=== PATIENT | female | born 2000 | race Caucasian/White ===

== ENCOUNTER 2020-05-15 22:54 | Emergency (ER) | payer OTHER ==
[2020-05-15] MEDS ORDERED: Pantoprazole 80 MG in Sodium Chloride 0.9% 20 ML IVPUSH ONE (23:18)
[2020-05-15] MEDS ORDERED: Alum Hydrox/Mag Hydrox/Simeth 15 ML, Metoclopramide 5 MG, Lidocaine 2% 5 ML PO ONE ×3 (23:18)
--- NOTE | 2020-05-15 23:22 | EDM.PDOC ---
ED [facility] GENERAL MEDICAL PROBLEM - General Chief Complaint: Chest Pain Stated Complaint: chest pains Time Seen by Provider: 05/15/20 22:58 - History of Present Illness INITIAL COMMENTS - FREE TEXT/NARRATIVE: HISTORY AND PHYSICAL: History of present illness: This 20-year-old female is currently 15 weeks , 2, para 0, EAB 1, presents emergency department complaining of chest pain with difficulty swallowing. It is gradually worsening over the last several days. She did have a few weeks of severe retching but has not been retching over the last 1 to 2 weeks given that she has had an escalation of her antinausea medication regiment. She was told to take Pepcid by her SHIPPING RECEIVING CLERK however she takes the Pepcid and then vomits. She has vomited 1-2 times since then and this causes severe pain. There is no family history or personal history of PE or DVT. She has not had a cough or fever. There is no phlegm production. There is no hemoptysis or hematemesis. There is no hematochezia. She denies any urinary sy mptoms. There is no abdominal cramping. No other associated signs or symptoms. No other modifying, aggravating or alleviating factors. Review of systems: A 10-point review of systems, other than pertinent positives and negatives as stated per HPI, is otherwise negative. Past medical history: As per history of present illness and as reviewed below otherwise noncontributory. Surgical history: As per history of present illness and as reviewed below otherwise noncontributory. Social history: No reported history of drug or alcohol abuse. Family history: As per history of present illness and as reviewed below otherwise noncontributory. Physical exam: VITAL SIGNS: Reviewed. GENERAL: Mild to moderate distress continues to rub her sternum in the midsternal area. HEAD: No signs of head trauma. EYES: Pupils are equal. Extraocular motions intact. EARS: Hearing grossly intact. MOUTH: Oropharynx is normal. NECK: No adenopathy, no JVD. CHEST: Chest with clear breath sounds bilaterally. No wheezes, rales, or rhonchi. CARDIAC: Tachycardic rate. Regular rhythm. I do not appreciate a murmur. VASCULAR: Peripheral pulses normal and equal in all extremities. ABDOMEN: Soft, without detectable tenderness. No sign of distention. No rebound or guarding, and no masses palpated. MUSCULOSKELETAL: Good range of motion of all major joints. Extremities without clubbing, cyanosis or edema. NEUROLOGIC EXAM: Alert and oriented x 3. No focal sensory or motor deficits. Speech normal. Follows commands. PSYCHIATRIC: Mood normal. SKIN: No rash or lesions. Initial Differential Diagnosis & Plan: Differential diagnosis includes acute myocardial infarction, pulmonary embolism, aortic dissection, pneumothorax, and esophageal rupture. Cardiac enzymes and EKG will be done for the possibility of myocardial infarction as well as pericarditis and myocarditis. Chest x-ray will be done to screen for pneumonia or pneumothorax. Pulmonary embolism risk factors were queried and the patient is . I will obtain a D-dimer and use a adjusted D-dimer to evaluate. I am more concerned about esophageal rupture given that she reports increased pain with swallowing. There is no pleuritic type pain where she has pain with taking deep breath. There is no fever which argues against mediastinitis. This could also be an esophagitis. There is no abdominal tenderness to suggest right upper quadrant pathology like biliary colic. Definitive disposition and diagnosis as appropriate pending reevaluation and review of above. chest Pain Score (Numeric/FACES): 8 - Related Data Allergies Allergy/AdvReac Type Severity Reaction Status Date / Time No Known Allergies Allergy Verified 05/15/20 23:19 Home Meds: Home Meds Pantoprazole Sodium [Protonix] 20 mg PO DAILY #14 tablet. 05/16/20 [Rx] Past Medical History HEENT History: Reports: None Neurological History: Reports: Concussion - Past Surgical History HEENT Surgical History: Reports: Oral Surgery Social & Family History - Family History Family Medical History: Noncontributory ED ROS GENERAL - Review of Systems Review Of Systems: See Below (noted) ED EXAM, GENERAL - Physical Exam Exam: See Below (noted) ED CARDIOLOGY PROCEDURES - Additional/Other Procedure(s) Other (Free Text) Procedure(s): PROCEDURE NOTE: Limited OB / Pelvic Ultrasound (transabdominal) Indication: Confirm a live IUP All images obtained and evaluated by me. Images archived and saved. Findings: 1. Uterus Identified 2. No significant Free Fluid Noted 3. Intrauterine identified Interpretation: Live IUP Signed by Jaime Ferreira M.D. Procedure Note: Point of Care Bedside Echocardiogram (limited echo) Self-performed and read Location: Chest Indication: Tachycardia and low QRS volume on ECG Probe: phased array - Cardiac contour identified -No obvious wall motion abnormalities -No obvious cardiomegaly -No pericardial fluid seen. No Tamponade Impression: 1. No tamponade or effusion Signed by: Jaime Ferreira MD #1 Interpretation EKG Interpretation Comments: 12 lead EKG interpretation Obtained: May 15, 2020 at 11:20 PM Rhythm: Sinus tachycardia Rate: 116 [place]: Normal Intervals: Normal ST/T Segments: No acute ischemic changes Interpretation: Sinus tachycardia, there is some low voltage in the precordial leads Course - Vital Signs Last Recorded V/S: Last Vital Signs Temp 98.1 F 05/15/20 23:13 Pulse 109 H 05/16/20 01:13 Resp 20 05/16/20 01:13 BP 93/68 05/16/20 01:13 Pulse Ox 98 05/16/20 01:13 - Orders/Labs/Meds Orders: Active Orders 24 hr Category Date Time Status EKG 12 Lead [EKG Documentation Completion] [RC] STAT Care 05/15/20 23:17 Active Labs: Laboratory Tests 05/15/20 05/15/20 05/15/20 Range/Units 23:30 23:30 23:30 WBC 12.22 H (4.0-11.0) K/uL RBC 4.29 L (4.30-5.90) M/uL Hgb 12.9 (12.0-16.0) g/dL Hct 37.8 (36.0-46.0) % MCV 88.1 (80.0-98.0) fL MCH 30.1 (27.0-32.0) pg MCHC 34.1 (31.0-37.0) g/dL RDW Std Deviation 41.7 (28.0-62.0) fl RDW Coeff of [place] 13 (11.0-15.0) % Plt Count 276 (150-400) K/uL MPV 10.00 (7.40-12.00) fL Neut % (Auto) 75.8 (48.0-80.0) % Lymph % (Auto) 17.0 (16.0-40.0) % [place] % (Auto) 6.3 (0.0-15.0) % Eos % (Auto) 0.7 (0.0-7.0) % Baso % (Auto) 0.2 (0.0-1.5) % Neut # (Auto) 9.3 H (1.4-5.7) K/uL Lymph # (Auto) 2.1 (0.6-2.4) K/uL [place] # (Auto) 0.8 (0.0-0.8) K/uL Eos # (Auto) 0.1 (0.0-0.7) K/uL Baso # (Auto) 0.0 (0.0-0.1) K/uL Nucleated RBC % 0.0 /100WBC Nucleated RBCs # 0 K/uL D-Dimer, Quantitative 0.65 H (0.0-0.50) mg/L FEU Sodium (136-145) mmol/L Potassium (3.5-5.1) mmol/L Chloride (98-107) mmol/L Carbon Dioxide (21.0-32.0) mmol/L BUN (7.0-18.0) mg/dL Creatinine (0.6-1.0) mg/dL Est Cr Clr Drug Dosing mL/min Estimated GFR (MDRD) ml/min Glucose (74-106) mg/dL Calcium (8.5-10.1) mg/dL Magnesium (1.8-2.4) mg/dL Total Bilirubin (0.2-1.0) mg/dL AST (15-37) IU/L ALT (14-63) IU/L Alkaline Phosphatase (46-116) U/L Troponin I (0.000-0.056) ng/mL Total Protein (6.4-8.2) g/dL Albumin (3.4-5.0) g/dL Globulin (2.6-4.0) g/dL Albumin/Globulin Ratio (0.9-1.6) HCG, Quant mIU/mL Urine Color YELLOW Urine Appearance CLEAR Urine pH 6.5 (5.0-8.0) Ur Specific [place] 1.020 (1.001-1.035) Urine Protein NEGATIVE (NEGATIVE) mg/dL Urine Glucose (UA) NEGATIVE (NEGATIVE) mg/dL Urine Ketones NEGATIVE (NEGATIVE) mg/dL Urine Occult Blood NEGATIVE (NEGATIVE) Urine Nitrite NEGATIVE (NEGATIVE) Urine Bilirubin NEGATIVE (NEGATIVE) Urine Urobilinogen 0.2 (<2.0) EU/dL Ur Leukocyte Esterase NEGATIVE (NEGATIVE) 05/15/20 Range/Units 23:30 WBC (4.0-11.0) K/uL RBC (4.30-5.90) M/uL Hgb (12.0-16.0) g/dL Hct (36.0-46.0) % MCV (80.0-98.0) fL MCH (27.0-32.0) pg MCHC (31.0-37.0) g/dL RDW Std Deviation (28.0-62.0) fl RDW Coeff of [place] (11.0-15.0) % Plt Count (150-400) K/uL MPV (7.40-12.00) fL Neut % (Auto) (48.0-80.0) % Lymph % (Auto) (16.0-40.0) % [place] % (Auto) (0.0-15.0) % Eos % (Auto) (0.0-7.0) % Baso % (Auto) (0.0-1.5) % Neut # (Auto) (1.4-5.7) K/uL Lymph # (Auto) (0.6-2.4) K/uL [place] # (Auto) (0.0-0.8) K/uL Eos # (Auto) (0.0-0.7) K/uL Baso # (Auto) (0.0-0.1) K/uL Nucleated RBC % /100WBC Nucleated RBCs # K/uL D-Dimer, Quantitative (0.0-0.50) mg/L FEU Sodium 135 L (136-145) mmol/L Potassium 3.7 (3.5-5.1) mmol/L Chloride 103 (98-107) mmol/L Carbon Dioxide 23.5 (21.0-32.0) mmol/L BUN 8 (7.0-18.0) mg/dL Creatinine 0.7 (0.6-1.0) mg/dL Est Cr Clr Drug Dosing 104.28 mL/min Estimated GFR (MDRD) > 60.0 ml/min Glucose 117 H (74-106) mg/dL Calcium 8.5 (8.5-10.1) mg/dL Magnesium 1.8 (1.8-2.4) mg/dL Total Bilirubin 0.4 (0.2-1.0) mg/dL AST 9 L (15-37) IU/L ALT 19 (14-63) IU/L Alkaline Phosphatase 87 (46-116) U/L Troponin I < 0.050 (0.000-0.056) ng/mL Total Protein 6.3 L (6.4-8.2) g/dL Albumin 2.9 L (3.4-5.0) g/dL Globulin 3.4 (2.6-4.0) g/dL Albumin/Globulin Ratio 0.9 (0.9-1.6) HCG, Quant 65403.0 mIU/mL Urine Color Urine Appearance Urine pH (5.0-8.0) Ur Specific [place] (1.001-1.035) Urine Protein (NEGATIVE) mg/dL Urine Glucose (UA) (NEGATIVE) mg/dL Urine Ketones (NEGATIVE) mg/dL Urine Occult Blood (NEGATIVE) Urine Nitrite (NEGATIVE) Urine Bilirubin (NEGATIVE) Urine Urobilinogen (<2.0) EU/dL Ur Leukocyte Esterase (NEGATIVE) Meds: Medications Discontinued Medications Generic Name Dose Route Start Last Admin Trade Name Freq PRN Reason Stop Dose Admin Acetaminophen 975 mg 05/16/20 01:18 05/16/20 01:22 Tylenol PO 05/16/20 01:19 975 mg NOW ONE Administration Al Hydroxide/Mg Hydroxide 15 0 ml 05/15/20 23:18 05/15/20 23:32 ml/ Metoclopramide HCl 5 mg/ PO 05/15/20 23:19 1 each Lidocaine HCl 5 ml ONETIME ONE Administration Pantoprazole Sodium 80 mg/ 20 mls @ 420 mls/hr 05/15/20 23:18 05/15/20 23:32 Sodium Chloride IVPUSH 05/15/20 23:20 420 mls/hr ONETIME ONE Administration Sodium Chloride 1,000 mls @ 2,000 mls/hr 05/16/20 01:18 05/16/20 01:23 Normal Saline IV 05/16/20 01:47 2,000 mls/hr .Bolus ONE Administration Iopamidol 90 ml 05/16/20 01:43 05/16/20 01:44 Isovue-370 (76%) IVPUSH 05/16/20 01:44 90 ml ONETIME ONE Administration - Re-Assessments/Exams Free Text/Narrative Re-Assessment/Exam: 05/16/20 02:21 CT is reassuring. Shows inflammation at the base of the esophagus and is consistent with reflux esophagitis. Her symptoms are consistent with this. There is no evidence of PE. Informed decision together with the patient for whether or not to obtain a CT scan. She was very concerned about her symptoms. We discussed her D-dimer being in the elevated but normal for adjusted range and because of the patient's concern, continued chest pain, and felt to have complete improvement with other medications she was concerned and desire to have the chest CT. Thankfully there is no evidence of PE, dissection or other pathology. My diagnostic impression: 1. Esophagitis 2. Chest pain during 3. second trimester Discharged with PPI Departure - Departure Time of Disposition: :18 Disposition: Home, Self-Care 01 Clinical Impression: Esophagitis, related condition in second trimester Referrals: Clyde Durant MD [Primary Care Provider] - Forms: ED Department Discharge Additional Instructions: The following information is given to patients seen in the emergency department who are being discharged to home. This information is to outline your options for follow-up care. We provide all patients seen in our emergency department with a follow-up referral. The need for follow-up, as well as the timing and circumstances, are variable depending upon the specifics of your emergency department visit. If you don't have a primary care physician on staff, we will provide you with a referral. We always advise you to contact your personal physician following an emergency department visit to inform them of the circumstance of the visit and for follow-up with them and/or the need for any referrals to a consulting specialist. The emergency department will also refer you to a specialist when appropriate. This referral assures that you have the opportunity for follow-up care with a specialist. All of these measure are taken in an effort to provide you with optimal care, which includes your follow-up. Thank you for coming to the [facility] urgency department for your care today. It was Dr. Ferreira's pleasure to take care of you. [facility]'s [address] [address] [facility]'s [facility] [address] [place] [id number] Please follow-up with your SHIPPING RECEIVING CLERK provider. Your CT scan shows no evidence of a blood clot in your lungs. There is evidence that your esophagus is inflamed. This is likely secondary to reflux as there is more inflammation at the base of the esophagus. This can cause her chest pain. Please take the medications that we have prescribed as this will help decrease the amount of reflux. Under all circumstances we always encourage you to contact your private physician who remains a resource for coordinating your care. When calling for follow-up care, please make the office aware that this follow-up is from your recent emergency room visit. If for any reason you are refused follow-up, please contact the [facility] Emergency Department at and asked to speak to the emergency department charge nurse. Sepsis Event Note (ED) - Evaluation Sepsis Screening Result: No Definite Risk - Focused Exam Vital Signs: Vital Signs Temp Pulse Resp BP Pulse Ox 05/16/20 01:13 109 H 20 93/68 98 05/15/20 23:13 98.1 F 120 H 17 118/79 95 - My Orders Last 24 Hours: My Active Orders 05/15/20 23:17 EKG 12 Lead [EKG Documentation Completion] [RC] STAT - Assessment/Plan Last 24 Hours: My Active Orders 05/15/20 23:17 EKG 12 Lead [EKG Documentation Completion] [RC] STAT
[2020-05-16 00:35] LABS: BLOOD UREA NITROGEN,BUN 8 mg/dL (7.0-18.0); CARBON DIOXIDE,CO2 23.5 mmol/L (21.0-32.0); CHLORIDE,CL 103 mmol/L (98-107); GLUCOSE RANDOM 117 mg/dL (74-106); POTASSIUM,K 3.7 mmol/L (3.5-5.1); SODIUM,NA 135 mmol/L (136-145)
--- NOTE | 2020-05-16 01:01 | CR ---
INDICATION: Chest wall pain with swallowing water, 15 weeks TECHNIQUE: Chest radiograph 1 view COMPARISON: None FINDINGS: Moderate degradation of image quality noted due to body habitus. Mediastinum: The mediastinum is normal in appearance. The heart silhouette is normal in size and morphology. Lung: Both lungs are unremarkable in appearance. No sign of pleural effusion seen. No pneumothorax is identified. Bone and Soft tissue: Unremarkable for age. IMPRESSION: 1. No acute cardiopulmonary disease is seen. Dictated by: Jareth Templeton MD @ 05/16/2020 01:00:04 (Electronically Signed)
[2020-05-16] MEDS ORDERED: Sodium Chloride 0.9% 1,000 ML IV ONE (01:18)
[2020-05-16] MEDS ORDERED: Acetaminophen 325 MG Tab PO ONE (01:18)
[2020-05-16] MEDS ORDERED: Iopamidol 755 Mg/ML 100 ML Bottle IVPUSH ONE (01:43)
--- NOTE | 2020-05-16 02:06 | CT ---
INDICATION: Chest pain when drinking water. Patient 15 weeks COMPARISON: Chest radiograph from today. TECHNIQUE: CT examination of the chest was performed with the uneventful intravenous administration of 90 cc of Isovue 370 while 1 in 3 mm thick axial sections were obtained through the pulmonary arteries. Please note that all CT scans at this facility use dose modulation, iterative reconstruction, and/or weight-based dosing when appropriate to reduce radiation dose to as low as reasonably achievable. FINDINGS: : There is no sign of pulmonary embolism, with normal enhancement and branching of the pulmonary arteries. The lungs are clear with no sign of significant infiltrate or mass. There is no sign of mediastinal or hilar mass or adenopathy. The heart is normal in appearance for the patient`s age, as are the aorta and other ascending great vessels. There is no sign of supraclavicular or axillary mass or adenopathy. The visualized superior liver, spleen, pancreas, kidneys, and adrenals are normal in appearance. There is mild thickening of the wall of the distal esophagus raising the possibility of reflux esophagitis. There is no definite hiatal hernia. The osseous structures are normal in appearance for the patient`s age. IMPRESSION: No sign of pulmonary embolism. Mild thickening of the wall of the distal thoracic esophagus raising the possibility of reflux esophagitis with no distinct hiatal hernia. Otherwise normal CT of the chest with contrast. Please note that all CT scans at this facility use dose modulation, iterative reconstruction, and/or weight-based dosing when appropriate to reduce radiation dose to as low as reasonably achievable. Dictated by Charan Bernal MD @ May 16 2020 2:01AM Signed by Dr. Charan Bernal @ May 16 2020 2:05AM
[2020-05-16 02:40] VITALS: BP 104/73; PULSE 98
== END 2020-05-16 02:35 | disposition home or self-care (01) ==
LOC: MW.ED 22:54
DX: O99.612 Diseases of the digestive system complicating pregnancy, second trimester (principal); K20.90 Esophagitis, unspecified without bleeding; O99.891 Other specified diseases and conditions complicating pregnancy; R07.9 Chest pain, unspecified; Z79.899 Other long term (current) drug therapy; Z3A.15 15 weeks gestation of pregnancy
CPT/HCPCS: 36415; 71045; 71275; 80053; 81003; 83735; 84484; 84702; 85025; 85379; 93005; 96374; 99285; A9270; C9113; J7030; Q9967; 93010

== ENCOUNTER 2020-10-24 11:43 | Inpatient (IN) | payer MEDICAID ==
[2020-10-24] MEDS ORDERED: Sodium Chloride 0.9% 10 ML SDV IV PRN (13:14)
[2020-10-24] MEDS ORDERED: Carboprost Tromethamine 250 MCG/1 ML Amp IM PRN (13:14)
[2020-10-24] MEDS ORDERED: Sodium Chloride 0.9% 10 ML Syringe FLUSH PRN (13:14)
[2020-10-24] MEDS ORDERED: Nalbuphine 10 MG/1 ML Vial IVPUSH PRN (13:14)
[2020-10-24] MEDS ORDERED: Misoprostol 200 MCG Tab PO PRN (13:14)
[2020-10-24] MEDS ORDERED: Ondansetron 4 MG/2 ML SDV IVPUSH PRN (13:14)
[2020-10-24] MEDS ORDERED: Lidocaine 1% 50 ML MDV INJECT PRN (13:14)
[2020-10-24] MEDS ORDERED: Butorphanol 1 MG/ML SDV IVPUSH PRN (13:14)
[2020-10-24] MEDS ORDERED: Sodium Chloride 0.9% 2.5 ML Syringe FLUSH PRN (13:14)
[2020-10-24] MEDS ORDERED: Tranexamic Acid 1,000 MG in Sodium Chloride 0.9% 100 ML IV PRN (13:14)
[2020-10-24] MEDS ORDERED: Water For Irrigation,Sterile 1,000 ML Container IRR PRN (13:14)
[2020-10-24] MEDS ORDERED: Methylergonovine 0.2 MG/1 ML Amp IM PRN (13:14)
[2020-10-24] MEDS ORDERED: Oxytocin/0.9 % Sodium Chloride 30 UNIT/500 ML BAG IV SCH ×2 (13:15→13:30)
[2020-10-24] MEDS ORDERED: Misoprostol 25 MCG (1/4 of 100 MCG) Tab PO PRN (13:19)
[2020-10-24] MEDS ORDERED: Misoprostol 25 MCG (1/4 of 100 MCG) Tab VAG PRN (13:19)
[2020-10-24] MEDS ORDERED: Terbutaline 1 MG/ML SDV SUBCUT PRN (13:19)
--- NOTE | 2020-10-24 13:23 | PCM.LDHP ---
L&D History of Present Illness - General Date of Service: 10/24/20 Admit Problem/Dx: Admission Diagnosis/Problem Admission Diagnosis/Problem 10/24/20 13:17 Santos is a 20 yo 010 at 38+4 weeks gestation (RAIANNA(LMP) 11/03/2020) that presents to L&D today for IOL d/t A1GDM. Patient seen in office 10/21/2020, RBAs of IOL and mode of cervical ripening (cytotec) discussed in office with Dr. Durant, consents signed at that time. 28 week prophylactic RhoGam administered 08/12/2020. Reports adequate movement. Denies pain, LOF, or vance vaginal bleeding at this time. B neg, Ab screen neg, RI, GBS neg. EFW via [place] 7+ lbs. 36-week growth US completed 10/07/2020 CWD, EFW 2867 g (6 lb 5 oz), 52nd%ile. 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 Medications: PNV. Patient has no other complaints or concerns at this time. Source of Information: Patient History Limitations: Reports: No Limitations - History of Present Illness Improves with: Reports: None Worsens with: Reports: None Associated Symptoms: Reports: N - Related Data Allergies/Adverse Reactions: Allergies Allergy/AdvReac Type Severity Reaction Status Date / Time No Known Allergies Allergy Verified 10/24/20 13:07 Home Medications: Home Meds Calcium Carbonate [Tums Extra Strength] 1 - 2 tab PO ASDIRECTED PRN 10/07/20 [History] Ondansetron [Zofran] 1 tab PO Q4H PRN 10/07/20 [History] Metoclopramide HCl [Reglan] 1 tab PO ASDIRECTED PRN 10/24/20 [History] Promethazine HCl 1 tab PO ASDIRECTED PRN 10/24/20 [History] Past Medical History - Past Health History Medical/Surgical History: Denies Medical/Surgical History HEENT History: Reports: None Cardiovascular History: Reports: None Respiratory History: Reports: None Gastrointestinal History: Reports: None Genitourinary History: Reports: None MANAGER MANAGED CARE History: Reports: Spontaneous : 2 Para: 0 LMP (Approximate): Musculoskeletal History: Reports: None Neurological History: Reports: Concussion Psychiatric History: Reports: Other (See Below) ("Adjustment disorder") Endocrine/Metabolic History: Reports: Obesity/BMI 30+ Hematologic History: Reports: Other (See Below) (Maternal Rh negative) Dermatologic History: Reports: Other (See Below) (Dermatitis) - Infectious Disease History Infectious Disease History: Reports: None - Past Surgical History HEENT Surgical History: Reports: Oral Surgery Social & Family History - Family History Family Medical History: No Pertinent Family History - Tobacco Use Tobacco Use Status *Q: Never Tobacco User - Caffeine Use Caffeine Use: Reports: None - Alcohol Use Alcohol Use History: No - Recreational Drug Use Recreational Drug Use: No H&P Review of Systems - Review of Systems: Review Of Systems: Comprehensive ROS is negative, except as noted in HPI. General: Reports: No Symptoms HEENT: Reports: No Symptoms Pulmonary: Reports: No Symptoms Cardiovascular: Reports: No Symptoms Gastrointestinal: Reports: No Symptoms Genitourinary: Reports: No Symptoms Musculoskeletal: Reports: No Symptoms Skin: Reports: No Symptoms Psychiatric: Reports: No Symptoms Neurological: Reports: No Symptoms Hematologic/Lymphatic: Reports: No Symptoms Immunologic: Reports: No Symptoms L&D Exam - Exam Exam: See Below - Vital Signs Vital Signs: VSS, afebrile. See new orders. Weight: 249 lb - OB Specific Contraction Duration (sec): 40-90 Contraction Frequency (min): Rare Heart Tones: Present Heart Tones per Min: 120 Heart Rate (FHR) Variability: Moderate (6-25 bmp) Presentation: Vertex - Exam General: Alert, Oriented, Cooperative HEENT: Conjunctiva Clear, Hearing Intact, Mucosa Moist & [place], TMs Clear, PERRLA Neck: Supple, Trachea Midline Lungs: Clear to Auscultation, Normal Respiratory Effort Cardiovascular: Regular Rate, Regular Rhythm GI/Abdominal Exam: Normal Bowel Sounds, Soft, Non-Tender, No Organomegaly, No Distention Rectal Exam: Deferred Genitourinary: Normal external exam, Normal bimanual exam, Enlarged uterus (Gravid uterus) Back Exam: Normal Inspection, Full Range of Motion Extremities: Normal Inspection, Normal Range of Motion, Non-Tender, No Pedal Edema, Normal Capillary Refill Skin: Warm, Dry, Intact Neurological: Cranial Nerves Intact, Reflexes Equal Bilateral Psychiatric: Alert, Normal Affect, Normal Mood - Patient Data Result Diagrams: 10/24/20 12:41 - Problem List (1) Encounter for induction of labor SNOMED Code(s): 777109843 ICD Code: Z34.90 - ENCNTR FOR SUPRVSN OF NORMAL , UNSP, UNSP TRIMESTER Status: Acute Priority: High Current Visit: Yes (2) GDM, class A1 SNOMED Code(s): 25452110 ICD Code: O24.410 - GESTATIONAL DIABETES MELLITUS IN , DIET CONTROLLED Status: Acute Priority: High Current Visit: Yes (3) 38 weeks gestation of SNOMED Code(s): 19812277 ICD Code: Z3A.38 - 38 WEEKS GESTATION OF Status: Acute Priority: High Current Visit: Yes Problem List Initiated/Reviewed/Updated: Yes Assessment/Plan Comment:: Admit for observation for IOL re: A1 GDM in anticipation of of term viable . FHR Cat I. Spontaneous contractions noted. Plan to continue IOL cytotec to pitocin orders. Dose #1 PO+PV cytotec administered ~2:10 pm today, plan to reassess cervical dilation ~6 pm. FSBSs q 6 hrs. May ambulate and hydrotherapy as desired after reactive NST achieved; repeat NST per orders. May receive epidural if desired >/=[address] See new orders[address] Dr. Durant notified and agreeable with POC.
[2020-10-25] MEDS: Lactated Ringers 1,000 ML IV SCH ×3 (01:48→09:30)
--- NOTE | 2020-10-25 07:56 | PCM.PNLD ---
Labor Progress Note - VS & Meds Vital Signs: Hemodynamically stable, afebrile. See flowsheet. Active Medications: Current Medications Butorphanol Tartrate (Butorphanol 1 Mg/Ml Sdv) 1 mg IVPUSH Q1H PRN PRN Reason: Pain Carboprost Tromethamine (Carboprost Tromethamine 250 Mcg/1 Ml Amp) 250 mcg IM ASDIRECTED PRN PRN Reason: Post Hemorrhage Oxytocin/Sodium Chloride (Oxytocin 30 Unit/500 Ml-Ns) 30 unit in 500 mls @ 999 mls/hr IV TITRATE GAMA Tranexamic Acid 1,000 mg/ (Sodium Chloride) 110 mls @ 660 mls/hr IV ONETIME PRN PRN Reason: Bleeding Lactated Ringer's (Ringers, Lactated) 1,000 mls @ 150 mls/hr IV ASDIRECTED GAMA Last Admin: 10/25/20 01:48 Dose: 150 mls/hr Documented by: Oxytocin/Sodium Chloride (Oxytocin 30 Unit/500 Ml-Ns) 30 unit in 500 mls @ 2 mls/hr IV TITRATE GAMA; Protocol Last Titration: 10/25/20 07:45 Dose: 6 munits/min, 6 mls/hr Documented by: Lidocaine HCl (Lidocaine 1% 50 Ml Mdv) 50 ml INJECT ONETIME PRN PRN Reason: Laceration repair Methylergonovine Maleate (Methylergonovine 0.2 Mg/1 Ml Amp) 0.2 mg IM ASDIRECTED PRN PRN Reason: Post Hemorrhage Misoprostol (Misoprostol 200 Mcg Tab) 200 mcg PO ONETIME PRN PRN Reason: Post Hemorrhage Misoprostol (Misoprostol 25 Mcg (1/4 Of 100 Mcg) Tab) 25 mcg VAG Q4H PRN PRN Reason: Cervical Ripening Last Admin: 10/24/20 14:09 Dose: 25 mcg Documented by: Misoprostol (Misoprostol 25 Mcg (1/4 Of 100 Mcg) Tab) 25 mcg PO Q4H PRN PRN Reason: Cervical Ripening Last Admin: 10/24/20 14:13 Dose: 25 mcg Documented by: Nalbuphine HCl (Nalbuphine 10 Mg/1 Ml Vial) 10 mg IVPUSH Q1H PRN PRN Reason: Pain (severe 7-10) Ondansetron HCl (Ondansetron 4 Mg/2 Ml Sdv) 4 mg IVPUSH Q6H PRN PRN Reason: Nausea/Vomiting Sodium Chloride (Sodium Chloride 0.9% 10 Ml Syringe) 10 ml FLUSH ASDIRECTED PRN PRN Reason: Keep Vein Open Sodium Chloride (Sodium Chloride 0.9% 2.5 Ml Syringe) 2.5 ml FLUSH ASDIRECTED PRN PRN Reason: Keep Vein Open Sodium Chloride (Sodium Chloride 0.9% 10 Ml Sdv) 10 ml IV ASDIRECTED PRN PRN Reason: IV Use Sterile Water (Water For Irrigation,Sterile 1,000 Ml Container) 1,000 ml IRR ASDIRECTED PRN PRN Reason: delivery Terbutaline Sulfate (Terbutaline 1 Mg/Ml Sdv) 0.25 mg SUBCUT ASDIRECTED PRN PRN Reason: Tacysystole - Uterine Contractions Uterine Monitoring Mode: External [place] Contraction Frequency (min): 3-4 Contraction Duration (sec): 70-90 Contraction Intensity: Mild to Moderate Uterine Resting Tone: Soft - Monitoring Monitor Mode: External Ultrasound Heart Rate (FHR) Baseline: 115 Heart Rate (FHR) Variability: Moderate (6-25 bmp) Accelerations: Present, 15x15 Decelerations: None Strip Review: Category I - Vaginal Exam Dilation (cm): 2-3 Effacement (Percent): 50 Station: -2 Cervical Position: Posterior Sterile Vaginal Exam Performed By: MARIAN ANDERSON - Labor Progress (Free Text) Labor Progress: Santos is a 20 yo 010 at 38+5 weeks gestation (ARIANNA(LMP) 11/03/2020) present on L&D for IOL d/t A1GDM. B neg, Ab screen neg, RI, GBS neg. 28 week prophylactic RhoGam administered 08/12/2020. Reports adequate movement. Denies pain, LOF, or vance vaginal bleeding at this time. EFW via Leopolds 7+ lbs. 36-week growth US completed 10/07/2020 CWD, EFW 2867 g (6 lb 5 oz), 52nd%ile. 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 Medications: PNV. Cytotec to pitocin IOL commenced at ~ 2:15 pm 10/24/2020, C/T/H at that time. Pitocin IV commenced at ~1:45 am at 2 millunits/min. RN unable to titrate appropriately due to staffing issues. Once staffing issues resolved, SVE 2-3/5 0/-2, soft, posterior with AROM of large clear fluid at ~ 7:05 am. RN instructed to titrate pitocin until adequate strong contractions achieved given FHR tolerance. Plan to reassess cervical dilation at 11 am or sooner if indicated. May receive epidural analgesia >/=5 cm. Continuous EFM+TOCO monitoring. Continue FSBSs q 6 hrs re: A1GDM. Warning S/Ss, when to call for provider discussed. Continue with IOL. Dr. Durant notified and agreeable with POC.
[2020-10-25] MEDS ORDERED: Ropivacaine HCl/PF 100 ML ONE (08:57)
[2020-10-25] MEDS ORDERED: fentaNYL 100 MCG/2 ML SDV ONE (08:57)
--- NOTE | 2020-10-25 09:19 | PCM.PREANE ---
Preanesthetic Assessment - Anesthesia/Transfusion/Family Hx Anesthesia History: Prior Anesthesia Without Reaction Family History of Anesthesia Reaction: No Transfusion History: No Prior Transfusion(s) - Physical Assessment NPO Status Date: 10/25/20 NPO Status Time: 00:05 Height: 1.6 m Weight: 112.945 kg ASA Class: 2 - Lab Values: Laboratory Last Values WBC 9.16 K/uL (4.0-11.0) 10/24/20 12:41 RBC 4.44 M/uL (4.30-5.90) 10/24/20 12:41 Hgb 12.6 g/dL (12.0-16.0) 10/24/20 12:41 Hct 37.4 % (36.0-46.0) 10/24/20 12:41 MCV 84.2 fL (80.0-98.0) 10/24/20 12:41 MCH 28.4 pg (27.0-32.0) 10/24/20 12:41 MCHC 33.7 g/dL (31.0-37.0) 10/24/20 12:41 RDW Std Deviation 40.9 fl (28.0-62.0) 10/24/20 12:41 RDW Coeff of [place] 14 % (11.0-15.0) 10/24/20 12:41 Plt Count 222 K/uL (150-400) 10/24/20 12:41 MPV 11.50 fL (7.40-12.00) 10/24/20 12:41 Nucleated RBC % 0.0 /100WBC 10/24/20 12:41 Nucleated RBCs # 0 K/uL 10/24/20 12:41 POC Glucose 89 mg/dL (60-110) 10/24/20 20:04 SARS-CoV-2 RNA (CLAIRE) NEGATIVE (NEGATIVE) 10/24/20 12:46 Blood Type B NEGATIVE 10/24/20 12:41 Antibody Screen POSITIVE 10/24/20 12:41 Antibody Identification Anti-D 10/24/20 12:41 - Allergies Allergies/Adverse Reactions: Allergies Allergy/AdvReac Type Severity Reaction Status Date / Time No Known Allergies Allergy Verified 10/24/20 13:07 - Acknowledgements Anesthesia Type Planned: Epidural Pt an Appropriate Candidate for the Planned Anesthesia: Yes Alternatives and Risks of Anesthesia Discussed w Pt/Guardian: Yes Pt/Guardian Understands and Agrees with Anesthesia Plan: Yes PreAnesthesia Questionnaire - Past Health History Medical/Surgical History: Denies Medical/Surgical History HEENT History: Reports: Impaired Vision Cardiovascular History: Reports: None Respiratory History: Reports: None Gastrointestinal History: Reports: None Genitourinary History: Reports: None C PROGRAMMER History: Reports: Spontaneous Musculoskeletal History: Reports: None Other Musculoskeletal History: right ankle fracture Neurological History: Reports: Concussion Psychiatric History: Reports: Other (See Below) ("Adjustment disorder") Endocrine/Metabolic History: Reports: Obesity/BMI 30+ Hematologic History: Reports: Other (See Below) (Maternal Rh negative) Dermatologic History: Reports: Other (See Below) (Dermatitis) - Infectious Disease History Infectious Disease History: Reports: None - Past Surgical History HEENT Surgical History: Reports: Oral Surgery Endocrine Surgical History: Reports: None Neurological Surgical History: Reports: None Musculoskeletal Surgical History: Reports: Other (See Below) Other Musculoskeletal Surgeries/Procedures:: right hand surgery - SUBSTANCE USE Tobacco Use Status *Q: Never Tobacco User Tobacco Use Within Last Twelve Months: Vaping Recreational Drug Use History: No Recreational Drug Type: Reports: Marijuana/Hashish Recreational Drug Last Use: 11/2019 - HOME MEDS Home Medications: Home Meds Calcium Carbonate [Tums Extra Strength] 1 - 2 tab PO ASDIRECTED PRN 10/07/20 [History] Ondansetron [Zofran] 1 tab PO Q4H PRN 10/07/20 [History] Metoclopramide HCl [Reglan] 1 tab PO ASDIRECTED PRN 10/24/20 [History] Promethazine HCl 1 tab PO ASDIRECTED PRN 10/24/20 [History] - CURRENT (IN HOUSE) MEDS Current Meds: Current Medications Butorphanol Tartrate (Butorphanol 1 Mg/Ml Sdv) 1 mg IVPUSH Q1H PRN PRN Reason: Pain Carboprost Tromethamine (Carboprost Tromethamine 250 Mcg/1 Ml Amp) 250 mcg IM ASDIRECTED PRN PRN Reason: Post Hemorrhage Oxytocin/Sodium Chloride (Oxytocin 30 Unit/500 Ml-Ns) 30 unit in 500 mls @ 999 mls/hr IV TITRATE GAMA Tranexamic Acid 1,000 mg/ (Sodium Chloride) 110 mls @ 660 mls/hr IV ONETIME PRN PRN Reason: Bleeding Lactated Ringer's (Ringers, Lactated) 1,000 mls @ 150 mls/hr IV ASDIRECTED GAMA Last Admin: 10/25/20 08:54 Dose: 999 mls/hr Documented by: Oxytocin/Sodium Chloride (Oxytocin 30 Unit/500 Ml-Ns) 30 unit in 500 mls @ 2 mls/hr IV TITRATE GAMA; Protocol Last Titration: 10/25/20 07:45 Dose: 6 munits/min, 6 mls/hr Documented by: Lidocaine HCl (Lidocaine 1% 50 Ml Mdv) 50 ml INJECT ONETIME PRN PRN Reason: Laceration repair Methylergonovine Maleate (Methylergonovine 0.2 Mg/1 Ml Amp) 0.2 mg IM ASDIRECTED PRN PRN Reason: Post Hemorrhage Misoprostol (Misoprostol 200 Mcg Tab) 200 mcg PO ONETIME PRN PRN Reason: Post Hemorrhage Misoprostol (Misoprostol 25 Mcg (1/4 Of 100 Mcg) Tab) 25 mcg VAG Q4H PRN PRN Reason: Cervical Ripening Last Admin: 10/24/20 14:09 Dose: 25 mcg Documented by: Misoprostol (Misoprostol 25 Mcg (1/4 Of 100 Mcg) Tab) 25 mcg PO Q4H PRN PRN Reason: Cervical Ripening Last Admin: 10/24/20 14:13 Dose: 25 mcg Documented by: Nalbuphine HCl (Nalbuphine 10 Mg/1 Ml Vial) 10 mg IVPUSH Q1H PRN PRN Reason: Pain (severe 7-10) Ondansetron HCl (Ondansetron 4 Mg/2 Ml Sdv) 4 mg IVPUSH Q6H PRN PRN Reason: Nausea/Vomiting Sodium Chloride (Sodium Chloride 0.9% 10 Ml Syringe) 10 ml FLUSH ASDIRECTED PRN PRN Reason: Keep Vein Open Sodium Chloride (Sodium Chloride 0.9% 2.5 Ml Syringe) 2.5 ml FLUSH ASDIRECTED PRN PRN Reason: Keep Vein Open Sodium Chloride (Sodium Chloride 0.9% 10 Ml Sdv) 10 ml IV ASDIRECTED PRN PRN Reason: IV Use Sterile Water (Water For Irrigation,Sterile 1,000 Ml Container) 1,000 ml IRR ASDIRECTED PRN PRN Reason: delivery Terbutaline Sulfate (Terbutaline 1 Mg/Ml Sdv) 0.25 mg SUBCUT ASDIRECTED PRN PRN Reason: Tacysystole Discontinued Medications Fentanyl (Fentanyl 100 Mcg/2 Ml Sdv) Confirm Administered Dose 100 mcg .ROUTE .STK-MED ONE Stop: 10/25/20 08:58 Ropivacaine (Naropin 0.2%) Confirm Administered Dose 100 mls @ as directed .ROUTE .HouzeMe-MED ONE Stop: 10/25/20 08:58
--- NOTE | 2020-10-25 09:22 | PCM.PRNOTE ---
- Free Text/Narrative Note: Anes Note Patient requests epidural for L&D. Sitting position. Level L3-L4 midline appraoch. Sterile technique. Chloraprep scrub to lumbar area. Sterile fenestrated drape applied. pidural space easily achieved single attempt with ease using MIGUEL technique. MIGUEL at 3 cm. Cath threaded 5 cm with ease. Cath secured a tskin using sterile clear adhesive dressing. 0907 Test 3 cc 1.5% lido with epi negative. 0910 Load 10 cc 0.2% ropivicaine with 1 mcg cc fentanyl in slow divided doses. 0914 Pumps started with 90 cc same solution. Rate is 8 cc hr wiht 6 cc q 20 min prn bolus. Devi well. Time with patient [id number] Shukri Yates BRAILLE CODER
[2020-10-25] MEDS ORDERED: Lidocaine 1% 50 ML MDV ONE (09:53)
[2020-10-25] MEDS ORDERED: Bisacodyl 10 MG Supp RECTAL PRN (12:51)
[2020-10-25] MEDS ORDERED: Benzocaine/Menthol 20%-0.5% Spray 78 GM Cannister TOP PRN (12:51)
[2020-10-25] MEDS ORDERED: Ibuprofen 400 MG Tab PO PRN (12:51)
[2020-10-25] MEDS ORDERED: oxyCODONE 5 MG Tab PO PRN (12:51)
[2020-10-25] MEDS ORDERED: Acetaminophen 500 MG Tab PO PRN ×2 (12:51)
[2020-10-25] MEDS ORDERED: Docusate Sodium 100 MG Cap PO PRN (12:51)
[2020-10-25] MEDS ORDERED: Witch Hazel Medicated Pads 40/Jar TOP PRN (12:51)
[2020-10-25] MEDS ORDERED: Lanolin 100% Cream 7 GM Tube TOP PRN (12:51)
--- NOTE | 2020-10-25 14:11 | PCM.DEL ---
L & D Note - General Info Date of Service: 10/25/20 - Delivery Note Labor: Augmented by ARM, Augmented by Oxytocin Cervical Ripening Method: Misoprostil Delivery Outcome: Livebirth Delivery Method: Spontaneous Vaginal Delivery-Single Infant Delivery Mode: Spontaneous Presentation: Left Occiput Anterior (MINESH) Nuchal Cord: None Anesthesia Type: Epidural Amniotic Fluid Description: Clear Episiotomy Type: None Laceration: None Placenta: Intact, Spontaneous Cord: 3 Vessels Estimated Blood Loss: 350 Resuscitation Needed: No : Stimulated, Warmed, [place] Used Score 1 min: 8 Score 5 min: 9 Second Stage Interventions: Reports: Encouragement Given, Pushing Effectively, Pushing, Feet in Foot Rests Delivery Comments (Free Text/Narrative):: Santos is a 20 yo current s/p uncomplicated of viable termat 38+5 weeks gestation (ARIANNA(LMP) 11/03/2020) that presents to L&D today for IOL d/t A1GDM. B neg, Ab screen neg, RI, GBS neg. 28 week prophylactic RhoGam administered 08/12/2020. Adequate epidural analgesia. Cephalic presentation. head delivered MINESH spontaneously, body following shortly after with the next pushes. NBF placed to maternal abdomen, warmed, dried, stimulated with spontaneous cries. Umbilical cord left intact for ~1 min, clamped x 2, cut by FOB. Pitocin bolus commenced, gentle cord traction applied for active third stage management. Placenta birthed ~8-10 min S/P NBF, intact, Lopez, 3VC. Perineum inspected, intact. Uterus firm @U+1. Scant vaginal bleeding noted. EBL 350 ml. APGARS 8/9. weight 7 lb 5 oz. - General Info Date of Service: 10/25/20 Admission Dx/Problem (Free Text): Admission Diagnosis/Problem Admission Diagnosis/Problem 10/24/20 13:17 Santos is a 20 yo 010 at 38+4 weeks gestation (ARIANNA(LMP) 11/03/2020) that presents to L&D today for IOL d/t A1GDM. Patient seen in office 10/21/2020, RBAs of IOL and mode of cervical ripening (cytotec) discussed in office with Dr. Durant, consents signed at that time. 28 week prophylactic RhoGam administered 08/12/2020. Reports adequate movement. Denies pain, LOF, or vance vaginal bleeding at this time. B neg, Ab screen neg, RI, GBS neg. EFW via Leopolds 7+ lbs. 36-week growth US completed 10/07/2020 CWD, EFW 2867 g (6 lb 5 oz), 52nd%ile. 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 Medications: PNV. Patient has no other complaints or concerns at this time. Functional Status: Reports: Pain Controlled - Review of Systems General: Reports: No Symptoms HEENT: Reports: No Symptoms Pulmonary: Reports: No Symptoms Cardiovascular: Reports: No Symptoms Gastrointestinal: Reports: No Symptoms Genitourinary: Reports: No Symptoms Musculoskeletal: Reports: No Symptoms Skin: Reports: No Symptoms Neurological: Reports: No Symptoms Psychiatric: Reports: No Symptoms - Patient Data Vitals - Most Recent: VSS, afebrile. See flowsheet. Weight - Most Recent: 249 lb Lab Results Last 24 Hours: Laboratory Results - last 24 hr 10/24/20 10/24/20 10/24/20 Range/Units 12:41 12:46 13:56 POC Glucose 97 (60-110) mg/dL SARS-CoV-2 RNA (CLAIRE) NEGATIVE (NEGATIVE) Blood Type B NEGATIVE Antibody Screen POSITIVE Antibody Identification Anti-D 10/24/20 10/25/20 Range/Units 20:04 08:10 POC Glucose 89 94 (60-110) mg/dL SARS-CoV-2 RNA (CLAIRE) (NEGATIVE) Blood Type Antibody Screen Antibody Identification Med Orders - Current: Current Medications Acetaminophen (Acetaminophen 500 Mg Tab) 500 mg PO Q4H PRN PRN Reason: Pain Acetaminophen (Acetaminophen 500 Mg Tab) 1,000 mg PO Q4H PRN PRN Reason: Pain Benzocaine/Menthol (Benzocaine/Menthol 20%-0.5% [place] 78 Gm Cannister) 78 gm TOP ASDIRECTED PRN PRN Reason: Perineal Comfort Measure Bisacodyl (Bisacodyl 10 Mg Supp) 10 mg RECTAL ONETIME PRN PRN Reason: Constipation Docusate Sodium (Docusate Sodium 100 Mg Cap) 100 mg PO BID PRN PRN Reason: Constipation Emollient Ointment (Lanolin 100% Cream 7 Gm Tube) 0 gm TOP ASDIRECTED PRN PRN Reason: Sore Nipples Ibuprofen (Ibuprofen 400 Mg Tab) 400 mg PO Q4H PRN PRN Reason: Pain Ibuprofen (Ibuprofen 800 Mg Tab) 800 mg PO Q6H PRN PRN Reason: Pain Oxycodone HCl (Oxycodone 5 Mg Tab) 5 mg PO Q2H PRN PRN Reason: Pain Witch Kalpana (Witch Kalpana Medicated Pads 40/Jar) 1 pad TOP ASDIRECTED PRN PRN Reason: comfort care Discontinued Medications Butorphanol Tartrate (Butorphanol 1 Mg/Ml Sdv) 1 mg IVPUSH Q1H PRN PRN Reason: Pain Carboprost Tromethamine (Carboprost Tromethamine 250 Mcg/1 Ml Amp) 250 mcg IM ASDIRECTED PRN PRN Reason: Post Hemorrhage Fentanyl (Fentanyl 100 Mcg/2 Ml Sdv) Confirm Administered Dose 100 mcg .ROUTE .[employer]-MED ONE Stop: 10/25/20 08:58 Oxytocin/Sodium Chloride (Oxytocin 30 Unit/500 Ml-Ns) 30 unit in 500 mls @ 999 mls/hr IV TITRATE GAMA Tranexamic Acid 1,000 mg/ (Sodium Chloride) 110 mls @ 660 mls/hr IV ONETIME PRN PRN Reason: Bleeding Lactated Ringer's (Ringers, Lactated) 1,000 mls @ 150 mls/hr IV ASDIRECTED GAMA Last Admin: 10/25/20 09:30 Dose: 150 mls/hr Documented by: Oxytocin/Sodium Chloride (Oxytocin 30 Unit/500 Ml-Ns) 30 unit in 500 mls @ 2 mls/hr IV TITRATE GAMA; Protocol Last Titration: 10/25/20 09:45 Dose: 8 munits/min, 8 mls/hr Documented by: Ropivacaine (Naropin 0.2%) Confirm Administered Dose 100 mls @ as directed .ROUTE .Valneva-MED ONE Stop: 10/25/20 08:58 Lidocaine HCl (Lidocaine 1% 50 Ml Mdv) 50 ml INJECT ONETIME PRN PRN Reason: Laceration repair Lidocaine HCl (Lidocaine 1% 50 Ml Mdv) Confirm Administered Dose 50 ml .ROUTE .[employer]-MED ONE Stop: 10/25/20 09:54 Methylergonovine Maleate (Methylergonovine 0.2 Mg/1 Ml Amp) 0.2 mg IM ASDIRECTED PRN PRN Reason: Post Hemorrhage Misoprostol (Misoprostol 200 Mcg Tab) 200 mcg PO ONETIME PRN PRN Reason: Post Hemorrhage Misoprostol (Misoprostol 25 Mcg (1/4 Of 100 Mcg) Tab) 25 mcg VAG Q4H PRN PRN Reason: Cervical Ripening Last Admin: 10/24/20 14:09 Dose: 25 mcg Documented by: Misoprostol (Misoprostol 25 Mcg (1/4 Of 100 Mcg) Tab) 25 mcg PO Q4H PRN PRN Reason: Cervical Ripening Last Admin: 10/24/20 14:13 Dose: 25 mcg Documented by: Nalbuphine HCl (Nalbuphine 10 Mg/1 Ml Vial) 10 mg IVPUSH Q1H PRN PRN Reason: Pain (severe 7-10) Ondansetron HCl (Ondansetron 4 Mg/2 Ml Sdv) 4 mg IVPUSH Q6H PRN PRN Reason: Nausea/Vomiting Last Admin: 10/25/20 09:54 Dose: 4 mg Documented by: Sodium Chloride (Sodium Chloride 0.9% 10 Ml Syringe) 10 ml FLUSH ASDIRECTED PRN PRN Reason: Keep Vein Open Sodium Chloride (Sodium Chloride 0.9% 2.5 Ml Syringe) 2.5 ml FLUSH ASDIRECTED PRN PRN Reason: Keep Vein Open Sodium Chloride (Sodium Chloride 0.9% 10 Ml Sdv) 10 ml IV ASDIRECTED PRN PRN Reason: IV Use Sterile Water (Water For Irrigation,Sterile 1,000 Ml Container) 1,000 ml IRR ASDIRECTED PRN PRN Reason: delivery Terbutaline Sulfate (Terbutaline 1 Mg/Ml Sdv) 0.25 mg SUBCUT ASDIRECTED PRN PRN Reason: Tacysystole - Exam General: Alert, Oriented, Cooperative, No Acute Distress HEENT: Pupils Equal, Mucous Membr. Moist/[place] Neck: Supple Lungs: Clear to Auscultation, Normal Respiratory Effort Cardiovascular: Regular Rate, Regular Rhythm GI/Abdominal Exam: Normal Bowel Sounds, Soft, Non-Tender, No Organomegaly, No Distention (Female) Exam: Normal External Exam, Enlarged Uterus ( uterus, firm U+1), Vaginal Bleeding (Scant rubra lochia, no clots.) Back Exam: Normal Inspection, Full Range of Motion Extremities: Normal Inspection, Normal Range of Motion, Non-Tender, No Pedal Edema, Normal Capillary Refill Skin: Warm, Dry, Intact Neurological: No New Focal Deficit (BLE epidural analgesia) Psy/Mental Status: Alert, Normal Affect, Normal Mood - Problem List & Annotations (1) (spontaneous vaginal delivery) SNOMED Code(s): 526686933 Code(s): O80 - ENCOUNTER FOR FULL-TERM UNCOMPLICATED DELIVERY Status: Acute Priority: High Current Visit: Yes (2) GDM, class A1 SNOMED Code(s): 06876792 Code(s): O24.410 - GESTATIONAL DIABETES MELLITUS IN , DIET CONTROLLED Status: Acute Priority: High Current Visit: Yes - Problem List Review Problem List Initiated/Reviewed/Updated: Yes - My Orders Last 24 Hours: My Active Orders 10/25/20 12:51 Patient Status [ADT] Routine May Shower [RC] ASDIRECTED Up ad Madai [RC] ASDIRECTED Vital Signs [RC] PER UNIT ROUTINE Acetaminophen [Tylenol Extra Strength] 1,000 mg PO Q4H PRN Acetaminophen [Tylenol Extra Strength] 500 mg PO Q4H PRN Benzocaine/Menthol [Dermoplast Pain Relief 20%-0.5% [place]] 78 gm TOP ASDIRECTED PRN Docusate Sodium [Colace] 100 mg PO BID PRN Ibuprofen [Motrin] 400 mg PO Q4H PRN Ibuprofen [Motrin] 800 mg PO Q6H PRN Lanolin [Lansinoh HPA] See Dose Instructions TOP ASDIRECTED PRN bisacodyL [Dulcolax] 10 mg RECTAL ONETIME PRN oxyCODONE 5 mg PO Q2H PRN witch Kalpana [Tucks] 1 pad TOP ASDIRECTED PRN Assess Lochia [WOMSER] Per Unit Routine Assess Uterine Involution [WOMSER] Per Unit Routine Ice Therapy [OM.PC] Per Unit Routine Perineal Care [OM.PC] Per Unit Routine Peripheral IV Discontinue [OM.PC] Routine Sitz Bath [OM.PC] Per Unit Routine Resuscitation Status Routine 10/25/20 12:52 Cooling Warming Measures [RC] ASDIRECTED POC Glucose [Blood Glucose Check, Bedside] [RC] Q6H 10/25/20 Dinner Regular Diet [DIET] 10/26/20 05:11 HEMOGLOBIN/HEMATOCRIT,HH [HEME] Timed - Plan Plan:: Admit inpatient to unit S/P of term, viable NBF. Maternal FSBSs daily and as needed. Regular diet as tolerated. Plan to D/C epidural now, may ambulate with assistance in 2-4 hours or when sensation returns. If patient does not void within 6 hours S/P delivery, notify provider. Desires to bottle feed. H/H in am. See new orders. Dr. Durant notified and agreeable with POC.
[2020-10-26] MEDS: Ibuprofen 800 MG Tab PO PRN ×2 (02:13→21:10)
--- NOTE | 2020-10-26 09:56 | PCM.PNPP ---
- General Info Date of Service: 10/26/20 Functional Status: Reports: Pain Controlled - Review of Systems General: Reports: No Symptoms HEENT: Reports: No Symptoms Pulmonary: Reports: No Symptoms Cardiovascular: Reports: No Symptoms Gastrointestinal: Reports: No Symptoms Genitourinary: Reports: No Symptoms Musculoskeletal: Reports: No Symptoms Skin: Reports: No Symptoms Neurological: Reports: No Symptoms Psychiatric: Reports: No Symptoms - General Info Date of Service: 10/26/20 - Patient Data Vital Signs - Most Recent: Last Vital Signs Temp 36.6 C 10/26/20 04:12 Pulse 73 10/26/20 04:12 Resp 16 10/26/20 04:12 BP 107/66 10/26/20 04:12 Pulse Ox 96 10/26/20 04:12 Weight - Most Recent: 112.945 kg Lab Results - Last 24 Hours: Laboratory Results - last 24 hr 10/25/20 10/25/20 10/25/20 Range/Units 08:10 14:19 20:15 Hgb (12.0-16.0) g/dL Hct (36.0-46.0) % POC Glucose 94 85 70 (60-110) mg/dL 10/26/20 10/26/20 Range/Units 02:05 05:12 Hgb 11.7 L (12.0-16.0) g/dL Hct 35.2 L (36.0-46.0) % POC Glucose 115 H (60-110) mg/dL Med Orders - Current: Current Medications Acetaminophen (Acetaminophen 500 Mg Tab) 500 mg PO Q4H PRN PRN Reason: Pain Acetaminophen (Acetaminophen 500 Mg Tab) 1,000 mg PO Q4H PRN PRN Reason: Pain Benzocaine/Menthol (Benzocaine/Menthol 20%-0.5% [place] 78 Gm Cannister) 78 gm TOP ASDIRECTED PRN PRN Reason: Perineal Comfort Measure Bisacodyl (Bisacodyl 10 Mg Supp) 10 mg RECTAL ONETIME PRN PRN Reason: Constipation Docusate Sodium (Docusate Sodium 100 Mg Cap) 100 mg PO BID PRN PRN Reason: Constipation Last Admin: 10/25/20 20:49 Dose: 100 mg Documented by: Emollient Ointment (Lanolin 100% Cream 7 Gm Tube) 0 gm TOP ASDIRECTED PRN PRN Reason: Sore Nipples Ibuprofen (Ibuprofen 400 Mg Tab) 400 mg PO Q4H PRN PRN Reason: Pain Ibuprofen (Ibuprofen 800 Mg Tab) 800 mg PO Q6H PRN PRN Reason: Pain Last Admin: 10/26/20 02:13 Dose: 800 mg Documented by: Oxycodone HCl (Oxycodone 5 Mg Tab) 5 mg PO Q2H PRN PRN Reason: Pain Witch Kalpana (Witch Kalpana Medicated Pads 40/Jar) 1 pad TOP ASDIRECTED PRN PRN Reason: comfort care Discontinued Medications Butorphanol Tartrate (Butorphanol 1 Mg/Ml Sdv) 1 mg IVPUSH Q1H PRN PRN Reason: Pain Carboprost Tromethamine (Carboprost Tromethamine 250 Mcg/1 Ml Amp) 250 mcg IM ASDIRECTED PRN PRN Reason: Post Hemorrhage Fentanyl (Fentanyl 100 Mcg/2 Ml Sdv) Confirm Administered Dose 100 mcg .ROUTE .[employer]-[facility] ONE Stop: 10/25/20 08:58 Oxytocin/Sodium Chloride (Oxytocin 30 Unit/500 Ml-Ns) 30 unit in 500 mls @ 999 mls/hr IV TITRATE GAMA Tranexamic Acid 1,000 mg/ (Sodium Chloride) 110 mls @ 660 mls/hr IV ONETIME PRN PRN Reason: Bleeding Lactated Ringer's (Ringers, Lactated) 1,000 mls @ 150 mls/hr IV ASDIRECTED GAMA Last Admin: 10/25/20 09:30 Dose: 150 mls/hr Documented by: Oxytocin/Sodium Chloride (Oxytocin 30 Unit/500 Ml-Ns) 30 unit in 500 mls @ 2 mls/hr IV TITRATE GAMA; Protocol Last Titration: 10/25/20 09:45 Dose: 8 munits/min, 8 mls/hr Documented by: Ropivacaine (Naropin 0.2%) Confirm Administered Dose 100 mls @ as directed .ROUTE .[employer]-[facility] ONE Stop: 10/25/20 08:58 Lidocaine HCl (Lidocaine 1% 50 Ml Mdv) 50 ml INJECT ONETIME PRN PRN Reason: Laceration repair Lidocaine HCl (Lidocaine 1% 50 Ml Mdv) Confirm Administered Dose 50 ml .ROUTE .[employer] ONE Stop: 10/25/20 09:54 Methylergonovine Maleate (Methylergonovine 0.2 Mg/1 Ml Amp) 0.2 mg IM ASDIRECTED PRN PRN Reason: Post Hemorrhage Misoprostol (Misoprostol 200 Mcg Tab) 200 mcg PO ONETIME PRN PRN Reason: Post Hemorrhage Misoprostol (Misoprostol 25 Mcg (1/4 Of 100 Mcg) Tab) 25 mcg VAG Q4H PRN PRN Reason: Cervical Ripening Last Admin: 10/24/20 14:09 Dose: 25 mcg Documented by: Misoprostol (Misoprostol 25 Mcg (1/4 Of 100 Mcg) Tab) 25 mcg PO Q4H PRN PRN Reason: Cervical Ripening Last Admin: 10/24/20 14:13 Dose: 25 mcg Documented by: Nalbuphine HCl (Nalbuphine 10 Mg/1 Ml Vial) 10 mg IVPUSH Q1H PRN PRN Reason: Pain (severe 7-10) Ondansetron HCl (Ondansetron 4 Mg/2 Ml Sdv) 4 mg IVPUSH Q6H PRN PRN Reason: Nausea/Vomiting Last Admin: 10/25/20 09:54 Dose: 4 mg Documented by: Sodium Chloride (Sodium Chloride 0.9% 10 Ml Syringe) 10 ml FLUSH ASDIRECTED PRN PRN Reason: Keep Vein Open Sodium Chloride (Sodium Chloride 0.9% 2.5 Ml Syringe) 2.5 ml FLUSH ASDIRECTED PRN PRN Reason: Keep Vein Open Sodium Chloride (Sodium Chloride 0.9% 10 Ml Sdv) 10 ml IV ASDIRECTED PRN PRN Reason: IV Use Sterile Water (Water For Irrigation,Sterile 1,000 Ml Container) 1,000 ml IRR ASDIRECTED PRN PRN Reason: delivery Terbutaline Sulfate (Terbutaline 1 Mg/Ml Sdv) 0.25 mg SUBCUT ASDIRECTED PRN PRN Reason: Tacysystole - Interaction Infant Disposition, : in Room with Family Infant Interaction: Holding Infant Feeding: Attempted ; Nursed Fair/Poor Support Person: Significant Other - Recovery Exam Fundal Tone: Firm Fundal Level: 1 Fingerbreadths Below Umbilicus Fundal Placement: Midline Lochia Amount: Scant Lochia Color: Rubra/Red Perineum Description: Intact, Minimal Bruising/Swelling Episiotomy/Laceration: None Bladder Status: Voiding Urinary Elimination: Voided - Exam General: Alert, Oriented HEENT: Pupils Equal Neck: Supple Lungs: Clear to Auscultation, Normal Respiratory Effort Cardiovascular: Regular Rate, Regular Rhythm GI/Abdominal Exam: Normal Bowel Sounds, Soft, Non-Tender, No Organomegaly, No Distention, No Abnormal Bruit, No Mass, Pelvis Stable Extremities: Normal Inspection, Normal Range of Motion, Non-Tender, No Pedal Edema, Normal Capillary Refill Skin: Warm, Dry, Intact Wound/Incisions: Healing Well Neurological: No New Focal Deficit Psy/Mental Status: Alert, Normal Affect, Normal Mood - Problem List Review Problem List Initiated/Reviewed/Updated: Yes - Assessment Assessment:: S/P doing well will send home in am - Plan Plan:: Admit inpatient to unit S/P of term, viable NBF. Maternal FSBSs daily and as needed. Regular diet as tolerated. Plan to D/C epidural now, may ambulate with assistance in 2-4 hours or when sensation returns. If patient does not void within 6 hours S/P delivery, notify provider. Desires to bottle feed. H/H in am. See new orders. Dr. Durant notified and agreeable with POC.
[2020-10-27 08:21] VITALS: BP 124/73; PULSE 66
--- NOTE | 2020-10-27 10:18 | PCM.DCSUM1 ---
Discharge Summary - Hospital Course Diagnosis: Stroke: No - Discharge Data Discharge Date: 10/27/20 Discharge Disposition: Home, Self-Care 01 Condition: Good - Referral to Home Health Primary Care Physician: Clyde Durant MD - Patient Instructions Diet: Usual Diet as Tolerated Activity: As Tolerated Driving: May Drive Today Showering/Bathing: May Shower - Discharge Plan Home Medications: Home Meds Calcium Carbonate [Tums Extra Strength] 1 - 2 tab PO ASDIRECTED PRN 10/07/20 [History] Ondansetron [Zofran] 1 tab PO Q4H PRN 10/07/20 [History] Metoclopramide HCl [Reglan] 1 tab PO ASDIRECTED PRN 10/24/20 [History] Promethazine HCl 1 tab PO ASDIRECTED PRN 10/24/20 [History] - Discharge Summary/Plan Comment DC Time >30 min.: Yes - General Info Date of Service: 10/27/20 Functional Status: Reports: Pain Controlled - Review of Systems General: Reports: No Symptoms HEENT: Reports: No Symptoms Pulmonary: Reports: No Symptoms Cardiovascular: Reports: No Symptoms Gastrointestinal: Reports: No Symptoms Genitourinary: Reports: No Symptoms Musculoskeletal: Reports: No Symptoms Skin: Reports: No Symptoms Neurological: Reports: No Symptoms Psychiatric: Reports: No Symptoms - Patient Data Vitals - Most Recent: Last Vital Signs Temp 36.6 C 10/27/20 07:47 Pulse 66 10/27/20 07:47 Resp 18 10/27/20 07:47 BP 124/73 10/27/20 07:47 Pulse Ox 95 10/27/20 07:47 Weight - Most Recent: 112.945 kg Lab Results - Last 24 hrs: Laboratory Results - last 24 hr 10/26/20 Range/Units 08:04 POC Glucose 94 (60-110) mg/dL Med Orders - Current: Current Medications Acetaminophen (Acetaminophen 500 Mg Tab) 500 mg PO Q4H PRN PRN Reason: Pain Acetaminophen (Acetaminophen 500 Mg Tab) 1,000 mg PO Q4H PRN PRN Reason: Pain Benzocaine/Menthol (Benzocaine/Menthol 20%-0.5% [place] 78 Gm Cannister) 78 gm TOP ASDIRECTED PRN PRN Reason: Perineal Comfort Measure Bisacodyl (Bisacodyl 10 Mg Supp) 10 mg RECTAL ONETIME PRN PRN Reason: Constipation Docusate Sodium (Docusate Sodium 100 Mg Cap) 100 mg PO BID PRN PRN Reason: Constipation Last Admin: 10/25/20 20:49 Dose: 100 mg Documented by: Emollient Ointment (Lanolin 100% Cream 7 Gm Tube) 0 gm TOP ASDIRECTED PRN PRN Reason: Sore Nipples Ibuprofen (Ibuprofen 400 Mg Tab) 400 mg PO Q4H PRN PRN Reason: Pain Ibuprofen (Ibuprofen 800 Mg Tab) 800 mg PO Q6H PRN PRN Reason: Pain Last Admin: 10/26/20 21:10 Dose: 800 mg Documented by: Oxycodone HCl (Oxycodone 5 Mg Tab) 5 mg PO Q2H PRN PRN Reason: Pain Witch Kalpana (Witch Kalpana Medicated Pads 40/Jar) 1 pad TOP ASDIRECTED PRN PRN Reason: comfort care Discontinued Medications Butorphanol Tartrate (Butorphanol 1 Mg/Ml Sdv) 1 mg IVPUSH Q1H PRN PRN Reason: Pain Carboprost Tromethamine (Carboprost Tromethamine 250 Mcg/1 Ml Amp) 250 mcg IM ASDIRECTED PRN PRN Reason: Post Hemorrhage Fentanyl (Fentanyl 100 Mcg/2 Ml Sdv) Confirm Administered Dose 100 mcg .ROUTE .[employer]-MED ONE Stop: 10/25/20 08:58 Oxytocin/Sodium Chloride (Oxytocin 30 Unit/500 Ml-Ns) 30 unit in 500 mls @ 999 mls/hr IV TITRATE GAMA Tranexamic Acid 1,000 mg/ (Sodium Chloride) 110 mls @ 660 mls/hr IV ONETIME PRN PRN Reason: Bleeding Lactated Ringer's (Ringers, Lactated) 1,000 mls @ 150 mls/hr IV ASDIRECTED GAMA Last Admin: 10/25/20 09:30 Dose: 150 mls/hr Documented by: Oxytocin/Sodium Chloride (Oxytocin 30 Unit/500 Ml-Ns) 30 unit in 500 mls @ 2 mls/hr IV TITRATE GAMA; Protocol Last Titration: 10/25/20 09:45 Dose: 8 munits/min, 8 mls/hr Documented by: Ropivacaine (Naropin 0.2%) Confirm Administered Dose 100 mls @ as directed .ROUTE .[employer] ONE Stop: 10/25/20 08:58 Lidocaine HCl (Lidocaine 1% 50 Ml Mdv) 50 ml INJECT ONETIME PRN PRN Reason: Laceration repair Lidocaine HCl (Lidocaine 1% 50 Ml Mdv) Confirm Administered Dose [address] ONE Stop: 10/25/20 09:54 Methylergonovine Maleate (Methylergonovine 0.2 Mg/1 Ml Amp) 0.2 mg IM ASDIRECTED PRN PRN Reason: Post Hemorrhage Misoprostol (Misoprostol 200 Mcg Tab) 200 mcg PO ONETIME PRN PRN Reason: Post Hemorrhage Misoprostol (Misoprostol 25 Mcg (1/4 Of 100 Mcg) Tab) 25 mcg VAG Q4H PRN PRN Reason: Cervical Ripening Last Admin: 10/24/20 14:09 Dose: 25 mcg Documented by: Misoprostol (Misoprostol 25 Mcg (1/4 Of 100 Mcg) Tab) 25 mcg PO Q4H PRN PRN Reason: Cervical Ripening Last Admin: 10/24/20 14:13 Dose: 25 mcg Documented by: Nalbuphine HCl (Nalbuphine 10 Mg/1 Ml Vial) 10 mg IVPUSH Q1H PRN PRN Reason: Pain (severe 7-10) Ondansetron HCl (Ondansetron 4 Mg/2 Ml Sdv) 4 mg IVPUSH Q6H PRN PRN Reason: Nausea/Vomiting Last Admin: 10/25/20 09:54 Dose: 4 mg Documented by: Sodium Chloride (Sodium Chloride 0.9% 10 Ml Syringe) 10 ml FLUSH ASDIRECTED PRN PRN Reason: Keep Vein Open Sodium Chloride (Sodium Chloride 0.9% 2.5 Ml Syringe) 2.5 ml FLUSH ASDIRECTED PRN PRN Reason: Keep Vein Open Sodium Chloride (Sodium Chloride 0.9% 10 Ml Sdv) 10 ml IV ASDIRECTED PRN PRN Reason: IV Use Sterile Water (Water For Irrigation,Sterile 1,000 Ml Container) 1,000 ml IRR ASDIRECTED PRN PRN Reason: delivery Terbutaline Sulfate (Terbutaline 1 Mg/Ml Sdv) 0.25 mg SUBCUT ASDIRECTED PRN PRN Reason: Tacysystole - Exam General: Reports: Alert, Oriented HEENT: Reports: Pupils Equal, Pupils Reactive, EOMI, Mucous Membr. Moist/[place]ck: Reports: Supple Lungs: Reports: Clear to Auscultation, Normal Respiratory Effort Cardiovascular: Reports: Regular Rate, Regular Rhythm GI/Abdominal Exam: Normal Bowel Sounds, Soft, Non-Tender, No Organomegaly, No Distention, No Abnormal Bruit, No Mass, Pelvis Stable (Female) Exam: Normal External Exam, Normal Speculum Exam, Normal Bimanual Exam Rectal (Female) Exam: Normal Exam, Normal Rectal Tone Back Exam: Reports: Normal Inspection, Full Range of Motion Extremities: Normal Inspection, Normal Range of Motion, Non-Tender, No Pedal Edema, Normal Capillary Refill Skin: Reports: Warm, Dry, Intact Wound/Incisions: Reports: Healing Well Neurological: Reports: No New Focal Deficit Psy/Mental Status: Reports: Alert, Normal Affect, Normal Mood
== END 2020-10-27 12:58 | disposition home or self-care (01) | DRG 807 ==
LOC: MW.OBCHECK 11:43 → MW.OB 13:14 → OBSVTOIN 13:15 → MW.OB 13:15
PROVIDERS: ADMIT Obstetrics & Gynecology; ATTEND Obstetrics & Gynecology
PROC: 10E0XZZ Delivery of Products of Conception, External Approach (ICD-10-PCS; principal; 2020-10-24)
PROC: 3E0P7VZ Introduction of Hormone into Female Reproductive, Via Natural or Artificial Opening (ICD-10-PCS; 2020-10-24)
PROC: 10907ZC Drainage of Amniotic Fluid, Therapeutic from Products of Conception, Via Natural or Artificial Opening (ICD-10-PCS; 2020-10-24)
PROC: 3E0R3BZ Introduction of Anesthetic Agent into Spinal Canal, Percutaneous Approach (ICD-10-PCS; 2020-10-24)
PROC: 00HU33Z Insertion of Infusion Device into Spinal Canal, Percutaneous Approach (ICD-10-PCS; 2020-10-24)
DX: O24.420 Gestational diabetes mellitus in childbirth, diet controlled (principal); Z37.0 Single live birth; Z3A.38 38 weeks gestation of pregnancy; Z20.822 Contact with and (suspected) exposure to COVID-19
CPT/HCPCS: 36415; 59025; 59409; 82962; 85014; 85018; 85027; 86592; 86850; 86870; 86900; 86901; A9270-GY; J2405; J2590; J2795; J3010; J7120; U0002

== ENCOUNTER 2021-11-03 23:11 | Emergency (ER) | payer MEDICAID ==
[2021-11-03 23:46] VITALS: BP 112/80
[2021-11-04 00:07] VITALS: PULSE 67
== END 2021-11-04 00:07 | disposition home or self-care (01) ==
LOC: MW.ED 23:11
DX: R06.02 Shortness of breath (principal)
CPT/HCPCS: 99282; 99284

== ENCOUNTER 2021-11-06 21:12 | Emergency (ER) | payer MEDICAID ==
[2021-11-06 21:47] VITALS: PULSE 78
[2021-11-06] MEDS ORDERED: LORazepam 1 MG Tab PO ONE (22:06)
[2021-11-06 22:38] LABS: CORONAVIRUS COVID-19 NAA NEGATIVE (NEGATIVE); INFLUENZA A NAA NEGATIVE (NEGATIVE); INFLUENZA B NAA NEGATIVE (NEGATIVE)
[2021-11-07 00:02] VITALS: BP 128/75
== END 2021-11-06 23:43 | disposition home or self-care (01) ==
LOC: MW.ED 21:12
DX: R06.02 Shortness of breath (principal); E66.9 Obesity, unspecified; Z68.26 Body mass index [BMI] 26.0-26.9, adult; Z87.891 Personal history of nicotine dependence; Z20.822 Contact with and (suspected) exposure to COVID-19
CPT/HCPCS: 0240U; 36415; 81001; 81025; 84484; 85379; 87086; 93005; 99285; A9270

== ENCOUNTER 2023-01-27 20:57 | Emergency (ER) | payer MEDICAID ==
[2023-01-27] MEDS ORDERED: Sodium Chloride 0.9% 2.5 ML Syringe FLUSH PRN (21:22)
[2023-01-27] MEDS ORDERED: Sodium Chloride 0.9% 10 ML Syringe FLUSH PRN (21:22)
[2023-01-27] MEDS ORDERED: Sodium Chloride 0.9% 1,000 ML IV ONE (21:30)
[2023-01-27] MEDS ORDERED: Metoclopramide 10 MG/2 ML SDV IVPUSH ONE (21:30)
[2023-01-27] MEDS ORDERED: diphenhydrAMINE 50 MG/ML SDV IVPUSH ONE (21:30)
[2023-01-27 21:52] LABS: BASOPHILS ABSOLUTE AUTO 0.1 K/uL (0.0-0.1); BASOPHILS PERCENT AUTO 0.6 % (0.0-1.5); EOSINOPHILS ABSOLUTE AUTO 0.2 K/uL (0.0-0.7); EOSINOPHILS PERCENT AUTO 1.5 % (0.0-7.0); HEMATOCRIT 43.9 % (36.0-46.0); HEMOGLOBIN 15.4 g/dL (12.0-16.0); LYMPHOCYTES ABSOLUTE AUTO 2.7 K/uL (0.6-2.4); LYMPHOCYTES PERCENT AUTO 24.5 % (16.0-40.0); MEAN CORPUSCULAR HGB CONC 35.1 g/dL (31.0-37.0); MEAN CORPUSCULAR VOLUME 85.6 fL (80.0-98.0); MONOCYTES ABSOLUTE AUTO 0.6 K/uL (0.0-0.8); MONOCYTES PERCENT AUTO 5.8 % (0.0-15.0); NEUTROPHILS ABSOLUTE AUTO 7.5 K/uL (1.4-5.7); NEUTROPHILS PERCENT AUTO 67.6 % (48.0-80.0); NRBC ABSOLUTE 0 K/uL; PLATELET COUNT,PLT 317 K/uL (150-400); RED BLOOD CELL COUNT 5.13 M/uL (4.30-5.90); WHITE BLOOD CELL COUNT,WBC 11.02 K/uL (4.0-11.0)
[2023-01-27 22:41] LABS: A/G RATIO 1.1 (0.9-1.6); ALBUMIN 3.7 g/dL (3.4-5.0); BILIRUBIN TOTAL 0.6 mg/dL (0.2-1.0); CREATININE 0.7 mg/dL (0.6-1.0); EST CRCL DRUG DOSING (CG) 101.63 mL/min; POTASSIUM,K 3.5 mmol/L (3.5-5.1); PROTEIN TOTAL,TP 7.1 g/dL (6.4-8.2)
[2023-01-28 02:45] VITALS: BP 102/61; PULSE 73
[2023-01-28 02:47] LABS: BILIRUBIN,URINE NEGATIVE (NEGATIVE); GLUCOSE,URINE NEGATIVE (NEGATIVE); KETONES,URINE NEGATIVE (NEGATIVE); LEUKOCYTE ESTERASE,URINE NEGATIVE (NEGATIVE); NITRITE,URINE NEGATIVE (NEGATIVE); OCCULT BLOOD,URINE MODERATE (NEGATIVE); PROTEIN,URINE TRACE mg/dL (NEGATIVE); UROBILINOGEN,URINE 0.2 EU/dL (<2.0)
[2023-01-28 02:55] LABS: APPEARANCE,URINE CLOUDY; CALCIUM OXALATE CRYSTALS,URINE FEW (NEGATIVE); COLOR,URINE DARK YELLOW; EPITHELIAL CELLS,URINE FEW (NONE-FEW); WBC,URINE 0-2 (0-5/HPF)
[2023-01-28 02:56] LABS: AMORPHOUS SEDIMENT,URINE MANY (NEGATIVE); BACTERIA,URINE FEW (NEGATIVE); MUCUS,URINE OCCASIONAL (NONE-MOD)
== END 2023-01-28 02:44 | disposition home or self-care (01) ==
LOC: MW.ED 20:57
DX: O20.0 Threatened abortion (principal); O99.211 Obesity complicating pregnancy, first trimester; Z3A.01 Less than 8 weeks gestation of pregnancy
CPT/HCPCS: 36415; 76801; 80053; 81001; 84702; 85025; 86850; 86900; 86901; 90384; 96361; 96374; 96375; 99284; J1200; J2765; J3490; J7030; J2790

== ENCOUNTER 2023-06-28 10:04 | Observation (INO) | payer MEDICAID ==
[2023-06-28] MEDS ORDERED: Sodium Chloride 0.9% 2.5 ML Syringe FLUSH PRN (10:39)
[2023-06-28] MEDS ORDERED: Sodium Chloride 0.9% 20 ML SDV IV PRN (10:39)
[2023-06-28] MEDS ORDERED: Sodium Chloride 0.9% 10 ML Syringe FLUSH PRN (10:39)
[2023-06-28] MEDS ORDERED: Loperamide 2 MG Cap PO ONE (10:44)
[2023-06-28] MEDS ORDERED: Lactated Ringers 1,000 ML IV SCH (10:45)
[2023-06-28 11:25] LABS: HEMOGLOBIN 14.1 g/dL (12.0-16.0); MEAN CORPUSCULAR HEMOGLOBIN 30.3 pg (28.0-32.0); MEAN CORPUSCULAR HGB CONC 36.2 g/dL (32.0-36.0); MEAN CORPUSCULAR VOLUME 83.7 fL (83.0-99.0); MEAN PLATELET VOLUME 10.5 fL (9.4-12.3); PLATELET COUNT,PLT 323 K/uL (150-400); RED BLOOD CELL COUNT 4.66 M/uL (4.10-5.30); WHITE BLOOD CELL COUNT,WBC 18.63 K/uL (3.9-11.3)
[2023-06-28] MEDS: Ondansetron 4 MG/2 ML SDV IVPUSH PRN ×3 (11:28→20:42)
[2023-06-28 12:35] LABS: ALBUMIN 2.6 g/dL (3.4-5.0); BILIRUBIN TOTAL 0.5 mg/dL (0.2-1.0); CALCIUM 8.5 mg/dL (8.5-10.1); CARBON DIOXIDE,CO2 19.8 mmol/L (21.0-32.0); CREATININE 0.7 mg/dL (0.6-1.0); EST CRCL DRUG DOSING (CG) 101.63 mL/min; POTASSIUM,K 3.5 mmol/L (3.5-5.1); PROTEIN TOTAL,TP 6.6 g/dL (6.4-8.2)
[2023-06-28] MEDS: Lactated Ringers 1,000 ML IV SCH ×3 (12:37→20:47)
[2023-06-28 12:40] LABS: A/G RATIO 0.7 (0.9-1.6)
[2023-06-28] MEDS ORDERED: Promethazine 25 MG/ML SDV IM ONE (13:22)
[2023-06-28] MEDS: Loperamide 2 MG Cap PO PRN ×4 (15:29→21:45)
[2023-06-28] MEDS ORDERED: Acetaminophen 500 MG Tab PO PRN (17:50)
[2023-06-28] MEDS: Promethazine 25 MG/ML SDV IM PRN (20:04)
[2023-06-29] MEDS: Ondansetron 4 MG/2 ML SDV IVPUSH PRN ×3 (00:42→08:48)
[2023-06-29] MEDS: Lactated Ringers 1,000 ML IV SCH ×2 (01:33→08:04)
[2023-06-29] MEDS: Promethazine 25 MG/ML SDV IM PRN (02:35)
[2023-06-29 10:09] LABS: CALCIUM 7.3 mg/dL (8.5-10.1); CARBON DIOXIDE,CO2 24.2 mmol/L (21.0-32.0); CREATININE 0.6 mg/dL (0.6-1.0); EST CRCL DRUG DOSING (CG) 118.57 mL/min; POTASSIUM,K 2.7 mmol/L (3.5-5.1); TSH ULTRASENSITIVE 0.65 uIU/mL (0.36-3.74)
[2023-06-29] MEDS: Potassium Chloride 20 MEQ in Premix Bag 1 BAG IV SCH ×2 (11:55→13:51)
[2023-06-29 16:48] LABS: CALCIUM 7.6 mg/dL (8.5-10.1); CARBON DIOXIDE,CO2 24.8 mmol/L (21.0-32.0); CREATININE 0.6 mg/dL (0.6-1.0); EST CRCL DRUG DOSING (CG) 118.57 mL/min; POTASSIUM,K 3.5 mmol/L (3.5-5.1)
== END 2023-06-29 17:30 | disposition home or self-care (01) ==
LOC: MW.OBCHECK 10:04 → MW.OB 10:06 → MW.OBCHECK 18:38
PROVIDERS: ADMIT Obstetrics & Gynecology; ATTEND Obstetrics & Gynecology
DX: O99.613 Diseases of the digestive system complicating pregnancy, third trimester (principal); A08.4 Viral intestinal infection, unspecified; O99.283 Endocrine, nutritional and metabolic diseases complicating pregnancy, third trimester; E87.6 Hypokalemia; E86.0 Dehydration; Z3A.28 28 weeks gestation of pregnancy
CPT/HCPCS: 36415; 59025; 80048; 80053; 84443; 85027; 96361; 96365; 96366; 96372; 96375; 96376; A9270; G0378; J2405; J2550; J3480; J7120

== ENCOUNTER 2023-09-03 22:44 | Observation (INO) | payer MEDICAID ==
[2023-09-03] MEDS ORDERED: Methylergonovine 0.2 MG/1 ML Amp IM PRN (23:26)
[2023-09-03] MEDS ORDERED: Water For Irrigation,Sterile 1,000 ML Container IRR PRN (23:26)
[2023-09-03] MEDS ORDERED: Tranexamic Acid IN NACL,ISO-OS 1,000 MG in Premix Bag 1 BAG IV PRN (23:26)
[2023-09-03] MEDS ORDERED: Lidocaine 1% 50 ML MDV INJECT PRN (23:26)
[2023-09-03] MEDS ORDERED: Misoprostol 200 MCG Tab PO PRN (23:26)
[2023-09-03] MEDS ORDERED: Sodium Chloride 0.9% 20 ML SDV IV PRN (23:26)
[2023-09-03] MEDS ORDERED: Nalbuphine 10 MG/0.5 ML Syringe IVPUSH PRN (23:26)
[2023-09-03] MEDS ORDERED: Sodium Chloride 0.9% 2.5 ML Syringe FLUSH PRN (23:26)
[2023-09-03] MEDS ORDERED: Carboprost Tromethamine 250 MCG/1 mL Vial IM PRN (23:26)
[2023-09-03] MEDS ORDERED: Sodium Chloride 0.9% 10 ML Syringe FLUSH PRN (23:26)
[2023-09-04 00:18] LABS: HEMATOCRIT 34.3 % (37.0-47.0); HEMOGLOBIN 11.8 g/dL (12.0-16.0); MEAN CORPUSCULAR HEMOGLOBIN 27.7 pg (28.0-32.0); MEAN CORPUSCULAR HGB CONC 34.4 g/dL (32.0-36.0); MEAN CORPUSCULAR VOLUME 80.5 fL (83.0-99.0); MEAN PLATELET VOLUME 10.4 fL (9.4-12.3); PLATELET COUNT,PLT 248 K/uL (150-400); RED BLOOD CELL COUNT 4.26 M/uL (4.10-5.30); WHITE BLOOD CELL COUNT,WBC 12.43 K/uL (3.9-11.3)
[2023-09-04] MEDS: Lactated Ringers 1,000 ML IV SCH (02:08)
[2023-09-04] MEDS ORDERED: Bupivacaine 0.5% 10 ML SDV ONE (02:33)
[2023-09-04] MEDS ORDERED: Phenylephrine HCl 0.5 MG/5 ML AMP ONE (02:33)
[2023-09-04] MEDS ORDERED: Ropivacaine HCl/PF 200 ML ONE (02:33)
[2023-09-04] MEDS: Ropivacaine HCl/PF 400 MG in Premix Bag 1 BAG EPIDUR SCH (02:48)
[2023-09-04] MEDS ORDERED: Phenylephrine HCl 0.5 MG/5 ML AMP IVPUSH PRN (02:58)
[2023-09-04] MEDS ORDERED: ePHEDrine 50 MG/ML SDV IVPUSH PRN ×2 (02:58)
[2023-09-04] MEDS: Oxytocin/0.9 % Sodium Chloride 30 UNIT/500 ML BAG IV SCH ×2 (03:12→09:22)
[2023-09-04] MEDS ORDERED: Docusate Sodium 100 MG Cap PO PRN (03:22)
[2023-09-04] MEDS ORDERED: Simethicone 80 MG Tab.Chew PO PRN (03:22)
[2023-09-04] MEDS ORDERED: Lanolin 100% Cream 7 GM Tube TOP PRN (03:22)
[2023-09-04] MEDS: Ondansetron 4 MG/2 ML SDV IVPUSH PRN (03:41)
[2023-09-04] MEDS: guaiFENesin/Dextromethorphan 100-10 MG/5 ML Soln 10 ML Cup PO PRN (09:52)
[2023-09-04] MEDS: Acetaminophen 500 MG Tab PO PRN (12:16)
[2023-09-04] MEDS: Witch Hazel Medicated Pads 40/Jar TOP PRN (12:17)
[2023-09-04] MEDS: Benzocaine/Menthol 20%-0.5% Spray 78 GM Cannister TOP PRN (12:17)
[2023-09-04] MEDS: Ibuprofen 800 MG Tab PO PRN (17:25)
[2023-09-04 18:09] LABS: CORONAVIRUS COVID-19 NAA NEGATIVE (NEGATIVE); INFLUENZA A NAA NEGATIVE (NEGATIVE); INFLUENZA B NAA NEGATIVE (NEGATIVE); RESPIRATORY SYNCYTIAL VIR NAA NEGATIVE (NEGATIVE)
[2023-09-05 06:23] LABS: HEMATOCRIT 29.7 % (37.0-47.0); HEMOGLOBIN 9.9 g/dL (12.0-16.0); MEAN CORPUSCULAR HEMOGLOBIN 27.1 pg (28.0-32.0); MEAN CORPUSCULAR HGB CONC 33.3 g/dL (32.0-36.0); MEAN CORPUSCULAR VOLUME 81.4 fL (83.0-99.0); MEAN PLATELET VOLUME 10.3 fL (9.4-12.3); PLATELET COUNT,PLT 215 K/uL (150-400); RED BLOOD CELL COUNT 3.65 M/uL (4.10-5.30); WHITE BLOOD CELL COUNT,WBC 13.39 K/uL (3.9-11.3)
[2023-09-05] MEDS: Tobramycin 0.3% Ophth Drops 5 ML Bottle EYEBOTH SCH (16:11)
[2023-09-06] MEDS: diphenhydrAMINE 50 MG Cap PO PRN (00:43)
[2023-09-06 16:28] VITALS: BP 132/74; PULSE 99
== END 2023-09-06 17:39 | disposition home or self-care (01) ==
LOC: MW.OBCHECK 22:44 → MW.OB 22:48 → MW.OBCHECK 23:27 → MW.OB 09-04 15:33
PROVIDERS: ADMIT Obstetrics & Gynecology; ATTEND Obstetrics & Gynecology
DX: O99.214 Obesity complicating childbirth (principal); E66.09 Other obesity due to excess calories; Z3A.38 38 weeks gestation of pregnancy; Z37.0 Single live birth; O99.52 Diseases of the respiratory system complicating childbirth; H10.9 Unspecified conjunctivitis; J06.9 Acute upper respiratory infection, unspecified; Z79.899 Other long term (current) drug therapy
CPT/HCPCS: 0241U; 36415; 51702; 59025; 59409; 84112; 85027; 86592; 86850; 86900; 86901; A9270; J0665; J2371; J2405; J2590; J2795; J7120

== ENCOUNTER 2024-07-28 02:15 | Emergency (ER) | payer SELFPAY ==
[2024-07-28 02:28] VITALS: BP 105/67; PULSE 69
[2024-07-28] MEDS ORDERED: Ketorolac 30 MG/ML SDV IM PRN (02:35)
== END 2024-07-28 03:06 | disposition home or self-care (01) ==
LOC: MW.ED 02:15
DX: H60.502 Unspecified acute noninfective otitis externa, left ear (principal); Z79.899 Other long term (current) drug therapy
CPT/HCPCS: 99282; 99283

== ENCOUNTER 2025-05-01 02:22 | Emergency (ER) | payer BC ==
[2025-05-01 02:52] VITALS: BP 113/67; PULSE 93
[2025-05-01] MEDS: Budesonide 0.5 MG/2 ML Neb Susp NEB ONE (03:16)
[2025-05-01] MEDS: Acetaminophen/HYDROcodone 325-5 MG Tab PO ONE (03:51)
== END 2025-05-01 03:55 | disposition home or self-care (01) ==
LOC: MW.ED 02:22
DX: J20.9 Acute bronchitis, unspecified (principal)
CPT/HCPCS: 99283; A9270; J7620

== ENCOUNTER 2025-05-03 20:47 | Emergency (ER) | payer BC ==
[2025-05-03] MEDS: methylPREDNISolone Sodium Succinate 40 MG/1 ML SDV IM ONE (21:53)
[2025-05-03] MEDS: Alum Hydrox/Mag Hydrox/Simeth 15 ML, Metoclopramide 5 MG, Lidocaine 2% 5 ML PO ONE (22:01)
[2025-05-03] MEDS ORDERED: Amoxicillin/Clavulanate K 875-125 MG Tab PO ONE (22:37)
[2025-05-03 23:03] VITALS: BP 100/61; PULSE 76
== END 2025-05-03 23:02 | disposition home or self-care (01) ==
LOC: MW.ED 20:47
DX: J18.9 Pneumonia, unspecified organism (principal); J02.9 Acute pharyngitis, unspecified; R05.2 Subacute cough; F17.290 Nicotine dependence, other tobacco product, uncomplicated; Z91.49 Other personal history of psychological trauma, not elsewhere classified; Z79.899 Other long term (current) drug therapy
CPT/HCPCS: 71045; 87428; 87651; 96372; 99285; A9270; J2919; J3490; 99283